=== PATIENT | female | born 1965 | race Caucasian/White ===

== ENCOUNTER 2019-08-11 05:55 | Day surgery (SDC) | payer MEDICARE, OTHER ==
[2019-08-11] MEDS ORDERED: IRR STERIL WATER FOR IRR 1000 ML BOTTLE IR ONE (05:56)
[2019-08-11] MEDS ORDERED: MIDAZOLAM HCL 2 MG/2 ML VIAL ONE ×3 (07:17→10:38)
[2019-08-11] MEDS ORDERED: FENTANYL CITRATE 100 MCG/2 ML AMPUL ONE (07:18)
[2019-08-11] MEDS ORDERED: BUPIVACAINE/EPI PF 0.25% 30 ML VIAL ONE (09:17)
[2019-08-11] MEDS ORDERED: LIDOCAINE 2%-EPI 1:100,000 20 ML VIAL ONE (09:17)
[2019-08-11] MEDS ORDERED: BALANCED SALT IRRIG SOLN COMB2 15 ML IRRIG.SOLN ONE (09:39)
[2019-08-11] MEDS ORDERED: CLINDAMYCIN PHOSPHATE 600 MG/4 ML VIAL ONE (09:48)
[2019-08-11] MEDS ORDERED: TOBRAMYCIN/DEXAMETH OPHT OINT 3.5 GM TUBE ONE (11:08)
[2019-08-11] MEDS ORDERED: PANTOPRAZOLE SODIUM 40 MG VIAL IV ONE (11:45)
[2019-08-11] MEDS ORDERED: ONDANSETRON 4 MG/2 ML VIAL ONE (11:52)
[2019-08-11] MEDS ORDERED: ACETAMINOPHEN ES 500 MG TABLET ONE (13:22)
== END 2019-08-11 14:00 | disposition home or self-care (01) ==
LOC: DS 05:55
PROVIDERS: ATTEND Dermatology MOHS-Micrographic Surgery
DX: H02.401 Unspecified ptosis of right eyelid (principal); I10 Essential (primary) hypertension; E11.9 Type 2 diabetes mellitus without complications; Z79.899 Other long term (current) drug therapy; Z98.890 Other specified postprocedural states
CPT/HCPCS: 67924; 71045; 82962; C9113; J2250 ×2; J2405; J3010; J3490 ×2; A4217; A4663; A9150; J3590; J7030